=== PATIENT | female | born 1995 | race African-American/Black ===

== ENCOUNTER 2020-01-31 20:32 | Emergency (ER) | payer MEDICAID ==
[~2020-01-31] VITALS: Ht 175.3 cm; Wt 63.9 kg
[2020-01-31] MEDS ORDERED: LIDOCAINE HCL 1% 20ML VIAL (Pyxis) INJ INFIL ONE (21:45)
[2020-01-31] MEDS ORDERED: TETANUS, DIPHTHERIA, PERTUSSIS VAC/PF 0.5ML (>7YR OLD) IM ONE (22:15)
[2020-01-31] MEDS ORDERED: IBUPROFEN 600MG TABLET PO ONE (22:15)
[2020-01-31 23:02] VITALS: BP 110/71
== END 2020-01-31 23:03 | disposition home or self-care (01) ==
LOC: ER 20:32
DX: S61.215A Laceration without foreign body of left ring finger without damage to nail, initial encounter (principal); W26.0XXA Contact with knife, initial encounter; Y93.89 Activity, other specified; Y92.89 Other specified places as the place of occurrence of the external cause; Y99.8 Other external cause status
CPT/HCPCS: 12001; 90471; 90715; 99283; J3490

== ENCOUNTER 2020-02-03 16:30 | Emergency (ER) | payer MEDICAID ==
[~2020-02-03] VITALS: Ht 167.6 cm; Wt 63.0 kg
[2020-02-03 16:32] VITALS: BP 115/66
== END 2020-02-03 17:02 | disposition home or self-care (01) ==
LOC: ER 16:30
DX: Z48.02 Encounter for removal of sutures (principal)
CPT/HCPCS: 99281

== ENCOUNTER 2020-02-15 15:47 | Emergency (ER) | payer MEDICAID ==
[~2020-02-15] VITALS: Ht 172.7 cm; Wt 55.0 kg
[2020-02-15 15:58] VITALS: BP 115/85
== END 2020-02-15 16:46 | disposition home or self-care (01) ==
LOC: ER 15:47
DX: Z48.02 Encounter for removal of sutures (principal)
CPT/HCPCS: 99282